=== PATIENT | male | born 1995 | race Caucasian/White ===

== ENCOUNTER 2020-11-17 09:10 | Emergency (ER) | payer MEDICAID ==
[~2020-11-17] VITALS: Ht 177.8 cm; Wt 79.5 kg
[~2020-11-17 09:10] MED LIST: NO HOME MEDS
[2020-11-17 09:12] VITALS: BP 118/88
--- NOTE | 2020-11-17 09:23 | NUR ---
PA EXAM, PT REFUSED X RAY. REPORTS NO DIFFICULY WALKING OR PAIN.
== END 2020-11-17 09:27 | disposition home or self-care (01) ==
LOC: ER 09:10
DX: Z00.00 Encounter for general adult medical examination without abnormal findings (principal); S80.12XA Contusion of left lower leg, initial encounter; Z72.89 Other problems related to lifestyle; W22.8XXA Striking against or struck by other objects, initial encounter; Y93.89 Activity, other specified; Y92.89 Other specified places as the place of occurrence of the external cause; Y99.8 Other external cause status
CPT/HCPCS: 99283